=== PATIENT | female | born 1955 | race Caucasian/White ===

== ENCOUNTER 2017-02-14 14:27 | Emergency (ER) | payer OTHER ==
[~2017-02-14] VITALS: Ht 157.5 cm; Wt 63.5 kg
[2017-02-14] MEDS ORDERED: METF500T4 PO (14:43)
[2017-02-14] MEDS ORDERED: NAPR500T3 PO (14:43)
[2017-02-14] MEDS ORDERED: METO-306 PO (14:43)
[2017-02-14] MEDS ORDERED: LEVO100T10 PO (14:43)
[2017-02-14] MEDS ORDERED: ALBU8HFA4 INH (14:43)
[2017-02-14] MEDS ORDERED: RIVA20TA PO (14:43)
[2017-02-14] MEDS ORDERED: GABA-534 PO (14:43)
[2017-02-14] MEDS ORDERED: ATOR40TA29 PO (14:43)
[2017-02-14] MEDS ORDERED: VALS1TAB73 PO (14:43)
--- NOTE | 2017-02-14 16:19 | NUR ---
pt requesting sugar to be checked. [id number]
--- NOTE | 2017-02-14 18:21 | NUR ---
Patient discharged to home in stable conditon. Written and verbal after care instructions given. Patient verbalizes understanding of instructions.pt pain down to tolerable level. pt accompanied by son, walking in steady gait.
[2017-02-14 18:22] VITALS: BP 149/90
== END 2017-02-14 18:22 | disposition home or self-care (01) ==
LOC: ER 14:27
DX: I10 Essential (primary) hypertension (principal); M54.30 Sciatica, unspecified side; E03.9 Hypothyroidism, unspecified; F17.200 Nicotine dependence, unspecified, uncomplicated
CPT/HCPCS: 72170; 73502; 73620; A4663; J0360; J1100; J2270; J2405; J3490